=== PATIENT | female | born 1975 | race African-American/Black ===

== ENCOUNTER 2019-06-15 06:58 | Emergency (ER) | payer MEDICAID, SELFPAY ==
[2019-06-15 06:59] VITALS: BP 160/99; PULSE 94; RESP 16; TEMP 36.9; O2SAT 100; BMI 45.1
--- NOTE | 2019-06-15 07:13 | ED.DCSUM_ITS ---
History of Present Illness Chief Complaint: Lower Extremity Injury Informant: Patient, Services Clerk Onset: Yesterday Context: Sudden Onset Timing: Continuous Quality: Pain Location: Left popliteal fossa/calf Current Severity: Mild Maximum Severity: Moderate Worsened by: Movement Relieved by: Nothing Associated Symptoms: No associated symptoms Narrative: Patient is a 43-year-old woman who presents with atraumatic left calf pain. She denies history of PE or DVT. She has no risk factors. She denies shortness of breath or chest pain. She denies fever, chills or night sweats. She denies paresthesia, anesthesia or motor weakness. She has no symptoms of claudication. She denies discoloration of the leg or rash. She has no other complaints. She did arrive by ambulance. Prior similar symptoms: No Recent Illness/Hospitalization: No - Past Medical History (1) History of hypertension Status: Acute Past Medical History - Allergies and Home Meds Allergies/Adverse Reactions: Allergies acetaminophen [From Percocet] Allergy (Verified 06/15/19 07:02) Hives hydrocodone [From Vicodin] Allergy (Verified 06/15/19 07:02) Hives oxycodone [From Percocet] Allergy (Verified 06/15/19 07:02) Hives Primary Care Physician: Rehan Mckinley MD [Primary Care Provider] - Prior records reviewed: Yes Surgical History: noncontributory Lives: Alone Smoking Status: Former smoker Alcohol: None Drugs: None Review of Systems General: Denies: Chills, Fever, Malaise, Subjective, Sweats Cardiovascular: Denies: Chest pain, Palpitations Respiratory: Denies: Dyspnea, Cough, Dyspnea on exertion, Orthopnea, Paroxysmal nocturnal dyspnea Gastrointestinal: Denies: Abdominal pain, Nausea, Vomiting, Diarrhea Musculoskeletal: Reports: Extremity Pain. Denies: Myalgias, Arthralgias, Neck pain, Back pain, Swelling Skin: Denies: Rash, Wounds Neurological: Denies: Weakness, Parasthesia, Numbness Psych: Denies: Depression, Anxiety Hematologic: Denies: Easy bruising, Easy bleeding Allergy: Denies: Uticaria, Swelling of the mouth Physical Exam Vital Signs/Narrative: Vital Signs Temp Pulse Resp BP Pulse Ox 06/15/19 06:59 98.5 F 94 16 160/99 H 100 Inital Vital Signs reviewed: Yes General: Well nourished, Well developed, Obese, No Acute Distress Head: Normocephalic, Atraumatic Eyes: Perrl, EOMI. Negative for: Pale conjunctiva, Scleral icterus ENT: Moist mucous membranes, No rhinorrhea Neck: Supple, Nontender, No lymphadenopathy, No JVD Cardiovascular: Regular rate, Regular rhythm, No murmurs, Normal S1, Normal S2 Respiratory: No distress, CTA bilaterally, Chest nontender Extremities: No edema, Tenderness - Tenderness in the left popliteal fossa and left calf. There is no discoloration, palpable cords or leg vein distention. There is pain palpation along the distribution of the deep venous system. There is slight swelling.. Negative for: Nontender Skin: Normal color. Negative for: No rash, Cyanosis, Diaphoresis, Jaundice, No Trauma Neurological: Alert, Oriented x3, Cranial nerves II-XII grossly intact, Normal Strength, Normal Sensation Psychological: Depressed Diagnostic/Tx/Re-eval Laboratory Results 06/15/19 07:35 D-Dimer Quant (PE/DVT) 0.29 A negative d-dimer and patient with low probability will treat for muscle skeletal pain. - Medical Decision Making No history of tenderness need to evaluate for DVT. Since patient is low risk a d-dimer was obtained. This may represent a muscle strain as well. If d-dimer positive for order venous duplex if negative treat for muscular etiology. ED Disposition - Plan for ED Patient: Disposition: Home or Assisted Living Diagnosis: Pain of left calf Instructions: MUSCLE STRAIN, Extremity Referrals: Rehan Mckinley MD [Primary Care Provider] - 1 Week if not improving Additional Instructions: You may take either 4 ibuprofen tablets every 8 hours or 2 Aleve tablets every 12 hours for the next 2 to 3 days for your pain. Recommend ice 20 to 30 minutes per application 6-8 times a day and rest.
--- NOTE | 2019-06-15 07:49 | ED.RN ---
PT VERY TEARFUL AND YELLS WHEN WEIGHT IS PUT ON LEFT LEG.
[2019-06-15 08:39] LABS: D-Dimer Quantitative (DVT/PE) 0.29 FEU/ug/m (0.27-0.49)
[2019-06-15] MEDS: Acetaminophen 325 MG Tablet 650 MG PO (08:56)
== END 2019-06-15 09:08 | disposition home or self-care (01) ==
PROVIDERS: Emergency Provider Emergency Medicine; Family Provider Family Medicine; PCP Family Medicine
DX: M79.662 Pain in left lower leg (principal); I10 Essential (primary) hypertension; E66.9 Obesity, unspecified; Z79.899 Other long term (current) drug therapy; Z87.891 Personal history of nicotine dependence
CPT/HCPCS: 36415; 85379; 99284